=== PATIENT | female | born 1980 | race American Indian/Alaskan Native ===

== ENCOUNTER 2016-08-16 15:27 | Emergency (ER) | payer SELFPAY ==
[2016-08-16 17:00] VITALS: BP 112/71
== END 2016-08-16 20:14 | disposition left against medical advice (07) ==
LOC: ED 15:27
DX: J02.9 Acute pharyngitis, unspecified (principal); R11.0 Nausea; M79.1 Myalgia; R51 Headache; R19.7 Diarrhea, unspecified; Z53.21 Procedure and treatment not carried out due to patient leaving prior to being seen by health care provider